=== PATIENT | female | born 1950 | race Caucasian/White ===

== ENCOUNTER 2017-09-09 13:36 | Observation (INO) ==
[2017-09-09 15:13] LABS: Bilirubin,Urine Negative (Negative); Clarity,Urine Cloudy (Clear); Color,Urine Yellow (Yellow); Glucose,Urine (UA) Normal (Normal); Ketones,Urine Negative (Negative)
[2017-09-09 15:14] LABS: Bacteria,Urine Moderate per hpf (None-Few); Blood,Urine Negative (Negative); Leukocyte Esterase,Urine Moderate (Negative); Nitrite,Urine Negative (Negative); PH,Urine 5.5 pH Units (5.0-8.0); Protein,Urine Negative (Neg-Trace); Specific Gravity,Urine 1.026 (1.010-1.025); Squamous Epithelial Cell,Urine Many per lpf (None-Few); Urobilinogen,Urine Normal (Normal); WBC,Urine TNTC per hpf (0-3)
[2017-09-09 15:15] LABS: Hyaline Casts,Urine Moderate per lpf (None-Few)
[2017-09-09 15:28] LABS: Amphetamine Screen,Urine Negative ng/mL (Cutoff=1000); Barbiturate Screen,Urine Negative ng/mL (Cutoff=200); Benzodiazepines Screen,Urine Negative ng/mL (Cutoff=200); Cannabinoid Screen,Urine Negative ng/mL (Cutoff = 50); Cocaine Screen,Urine Negative ng/mL (Cutoff= 300); Opiate Screen,Urine Negative ng/mL (Cutoff=300); Phencyclidine Screen,Urine Negative ng/mL (Cutoff=25)
[2017-09-09 15:36] LABS: Basophils # 0.2 K/mcL (0.0-0.2); Basophils % 1.7 %; Eosinophils # 0.2 K/mcL (0.0-0.6); Hematocrit 41.3 % (35.3-44.9); Hemoglobin 12.9 g/dL (11.5-15.4); Immature Granulocytes % 0.3 % (0-4); Lymphocytes % 23.4 %; Mean Corpuscular HGB Conc 31.2 g/dL (31.6-35.5); Mean Corpuscular Hemoglobin 29.3 pg (28.0-33.3); Mean Corpuscular Volume 93.9 fL (83.0-100.0); Mean Platelet Volume 9.2 fL (9.4-12.4); Neutrophils # 5.2 K/mcL (1.6-8.9); Platelet Count 315 K/mcL (140-400); Red Cell Distribution Width 13.9 % (11.5-14.5); Segmented Neutrophils % 60.6 %
--- NOTE | 2017-09-09 15:42 | Emergency Department Note ---
Disposition Clinical Impression: Near syncope, CKD (chronic kidney disease) stage 3, GFR 30-59 ml/min UTI (urinary tract infection) Qualifiers: Urinary tract infection type: site unspecified Hematuria presence: without hematuria Qualified Code(s): N39.0 - Urinary tract infection, site not specified Disposition: Still a Patient Condition: Good Referrals: Yves Epps DO [Primary Care Provider] - Forms: ED Satisfaction Letter General Adult HPI - General Chief complaint: ED Weakness Stated complaint: shaking,weak- 4 episodes over last 6 months Time Seen by Provider: 09/09/17 15:19 Source: patient Limitations: no limitations Nursing Notes Reviewed: Yes Vital Signs Reviewed: Yes - History of Present Illness HPI Narrative: Ms Damon is a 67 yo F who is here due to 2x episodes of numbness and tingling in arms today. This started 6-8 months ago and she has had 4 episodes during this time. These episodes have started sitting, and standing, and resolved after 2-3 minutes. She states she has SOB on exertion, and increased swelling in her ankles during the last few months. Patient denies recent "illness", fever, chills, diabetes, chest pain, orthopnea, PND. Pain Scale: 0 - Related Data Allergies Allergy/AdvReac Type Severity Reaction Status Date / Time No Known Allergies Allergy Verified 09/09/17 13:39 All systems ED: reviewed and negative except as stated. Review of Systems: As Per HPI Past Medical History - Past Medical History Attestation: Yes The following information was validated with the patient. Source: patient Medical history: Reports: hyperlipidemia, hypertension Psychiatric history: Reports: no psych history - Social History Smoking Status: Never smoker Smokeless Tobacco Status: No Alcohol use: Reports: none Drug use: Reports: none Physical Exam - General Limitations: no limitations General appearance: alert, in no apparent distress - Head Head exam: atraumatic, normocephalic, normal inspection - Eye Eye exam: Present: normal appearance, PERRL, EOMI - ENT ENT exam: normal exam, normal oropharynx, mucous membranes moist - Chest Chest inspection: Present: normal inspection, symmetric chest wall rise. Absent : tenderness, rash - Respiratory Respiratory exam: Present: normal lung sounds bilaterally. Absent: respiratory distress, wheezes, stridor, accessory muscle use, prolonged expiratory phase - Cardiovascular Cardiovascular exam: Present: regular rate, normal rhythm, normal heart sounds. Absent: bradycardia, tachycardia, irregular rhythm, systolic murmur, diastolic murmur, JVD - Abdominal Exam Abdominal exam: Present: soft, Non-Tender. Absent: tenderness, distention, guarding, rebound, rigidity - Extremities Exam Extremities exam: Present: normal inspection, full ROM. Absent: tenderness, pedal edema Course Course Narrative: Cardiac workup pending. - Reevaluation(s) Reevaluation #1: Heart score 4. U/A came back suspicious for UTI, and GFR is 57 suggestive of CKD3. Will start IVF Time: 16:33 Reevaluation #2: Patient is now stating she is having Left arm shakiness and weakness. Will order CT head. Spoke with Avery, admitting, and he requests to have MRI ordered if CT is negative due to holding pattern in hospital right now. Time: 16:46 Vital Signs Temperature 98.3 F 09/09/17 13:39 Pulse Rate 85 09/09/17 13:39 Respiratory Rate 20 09/09/17 13:39 Blood Pressure 150/84 09/09/17 13:39 O2 Sat by Pulse Oximetry 96 09/09/17 13:39 Temperature 98.3 F 09/09/17 13:39 Pulse Rate 68 09/09/17 17:50 Respiratory Rate 16 09/09/17 17:50 Blood Pressure 138/76 09/09/17 17:50 O2 Sat by Pulse Oximetry 99 09/09/17 17:50 Oxygen Delivery Oxygen Delivery Room Air Medical Decision Making - Medical Records Medical records reviewed: Yes I reviewed the patient's medical records. - Lab Data Result diagrams: 09/09/17 15:16 09/09/17 15:16 Lab Results 09/09/17 09/09/17 09/09/17 Range/Units 14:45 14:45 15:16 WBC 8.7 (4.3-11.1) K/mcL RBC 4.40 (3.82-4.97) M/mcL Hgb 12.9 (11.5-15.4) g/dL Hct 41.3 (35.3-44.9) % MCV 93.9 (83.0-100.0) fL MCH 29.3 (28.0-33.3) pg MCHC 31.2 L (31.6-35.5) g/dL RDW 13.9 (11.5-14.5) % Plt Count 315 (140-400) K/mcL MPV 9.2 L (9.4-12.4) fL Immature Gran % 0.3 (0-4) % Seg Neutrophils % 60.6 % Lymphocytes % 23.4 % Monocytes % 12.0 % Eosinophils % 2.0 % Basophils % 1.7 % Neutrophils # 5.2 (1.6-8.9) K/mcL Lymphocytes # 2.0 (0.6-4.6) K/mcL Monocytes # 1.0 (0.0-1.3) K/mcL Eosinophils # 0.2 (0.0-0.6) K/mcL Basophils # 0.2 (0.0-0.2) K/mcL Sodium (136-145) mEq/L Potassium (3.5-5.1) mEq/L Chloride (98-107) mEq/L Carbon Dioxide (23-29) mEq/L BUN (8-23) mg/dL Creatinine (0.60-1.20) mg/dL Est GFR ( Amer) (> 60) Est GFR (Non-Af Amer) (> 60) BUN/Creatinine Ratio (6-26) Glucose (70-105) mg/dL Calculated Osmolality (280-300) Calcium (8.6-10.3) mg/dL Total Bilirubin (0.3-1.0) mg/dL AST (13-39) Units/L ALT (7-52) Units/L Alkaline Phosphatase (34-104) Units/L Troponin I (< 0.04) ng/mL B-Natriuretic Peptide (Less than 100) pg/mL Serum Total Protein (6.4-8.9) g/dL Albumin (3.5-5.7) g/dL Globulin (2.4-3.5) g/dL Albumin/Globulin Ratio (1.1-2.2) Urine Color Yellow (Yellow) Urine Clarity Cloudy A (Clear) Urine pH 5.5 (5.0-8.0) pH Units Ur Specific [place] 1.026 H (1.010-1.025) Urine Protein Negative (Neg-Trace) mg/dL Urine Glucose (UA) Normal (Normal) mg/dL Urine Ketones Negative (Negative) mg/dL Urine Blood Negative (Negative) Urine Nitrite Negative (Negative) Urine Bilirubin Negative (Negative) Urine Urobilinogen Normal (Normal) mg/dL Ur Leukocyte Esterase Moderate H (Negative) Urine Microscopic RBC 5-15 H (0-3) per hpf Urine Microscopic WBC TNTC H (0-3) per hpf Ur Squamous Epith Cells Many H (None-Few) per lpf Urine Bacteria Moderate H (None-Few) per hpf Hyaline Casts Moderate H (None-Few) per lpf Ur Culture Indicated? NO. (NO) Urine Opiates Screen Negative (Lsrorv=243) ng/mL Ur Barbiturates Screen Negative (Nivvfk=151) ng/mL Ur Phencyclidine Scrn Negative (Cutoff=25) ng/mL Ur Amphetamines Screen Negative (Fkezum=4631) ng/mL U Benzodiazepines Scrn Negative (Jypucn=405) ng/mL Urine Cocaine Screen Negative (Cutoff= 300) ng/mL U Marijuana (THC) Screen Negative (Cutoff = 50) ng/mL Ethyl Alcohol (0-10) mg/dL 09/09/17 09/09/17 Range/Units 15:16 15:16 WBC (4.3-11.1) K/mcL RBC (3.82-4.97) M/mcL Hgb (11.5-15.4) g/dL Hct (35.3-44.9) % MCV (83.0-100.0) fL MCH (28.0-33.3) pg MCHC (31.6-35.5) g/dL RDW (11.5-14.5) % Plt Count (140-400) K/mcL MPV (9.4-12.4) fL Immature Gran % (0-4) % Seg Neutrophils % % Lymphocytes % % Monocytes % % Eosinophils % % Basophils % % Neutrophils # (1.6-8.9) K/mcL Lymphocytes # (0.6-4.6) K/mcL Monocytes # (0.0-1.3) K/mcL Eosinophils # (0.0-0.6) K/mcL Basophils # (0.0-0.2) K/mcL Sodium 140 (136-145) mEq/L Potassium 4.4 (3.5-5.1) mEq/L Chloride 104 (98-107) mEq/L Carbon Dioxide 30 H (23-29) mEq/L BUN 29 H (8-23) mg/dL Creatinine 0.97 (0.60-1.20) mg/dL Est GFR ( Amer) > 60 (> 60) Est GFR (Non-Af Amer) 57 L (> 60) BUN/Creatinine Ratio 30 H (6-26) Glucose 100 (70-105) mg/dL Calculated Osmolality 296 (280-300) Calcium 10.0 (8.6-10.3) mg/dL Total Bilirubin 0.3 (0.3-1.0) mg/dL AST 29 (13-39) Units/L ALT 39 (7-52) Units/L Alkaline Phosphatase 91 (34-104) Units/L Troponin I < 0.03 (< 0.04) ng/mL B-Natriuretic Peptide 44 (Less than 100) pg/mL Serum Total Protein 6.6 (6.4-8.9) g/dL Albumin 4.4 (3.5-5.7) g/dL Globulin 2.2 L (2.4-3.5) g/dL Albumin/Globulin Ratio 2.0 (1.1-2.2) Urine Color (Yellow) Urine Clarity (Clear) Urine pH (5.0-8.0) pH Units Ur Specific [place] (1.010-1.025) Urine Protein (Neg-Trace) mg/dL Urine Glucose (UA) (Normal) mg/dL Urine Ketones (Negative) mg/dL Urine Blood (Negative) Urine Nitrite (Negative) Urine Bilirubin (Negative) Urine Urobilinogen (Normal) mg/dL Ur Leukocyte Esterase (Negative) Urine Microscopic RBC (0-3) per hpf Urine Microscopic WBC (0-3) per hpf Ur Squamous Epith Cells (None-Few) per lpf Urine Bacteria (None-Few) per hpf Hyaline Casts (None-Few) per lpf Ur Culture Indicated? (NO) Urine Opiates Screen (Nnyaoy=838) ng/mL Ur Barbiturates Screen (Tasunp=725) ng/mL Ur Phencyclidine Scrn (Cutoff=25) ng/mL Ur Amphetamines Screen (Evzclw=8795) ng/mL U Benzodiazepines Scrn (Bwzqxv=728) ng/mL Urine Cocaine Screen (Cutoff= 300) ng/mL U Marijuana (THC) Screen (Cutoff = 50) ng/mL Ethyl Alcohol < 10 (0-10) mg/dL - EKG Data EKG #1 EKG attestation: Yes I reviewed and interpreted this EKG. EKG shows normal: sinus rhythm Rate: normal Rhythm: NSR [place]/QRS: normal When compared to previous EKG there are: no significant changes Interpretation: no acute changes, normal EKG, unchanged when compared to prior tracing (date) Attestation Statement - Attestation Attestation: I, Claude Mccabe, examined this patient and my medical decision-making was reviewed with the ASSOCIATE JUVENILE COURT JUDGE/PA/Advanced Practice Nurse/Resident Physician. I agree with the documented findings, disposition and treatment plan as described except to the extent set forth below. 67-year-old female presents emergency Department with concerns of intermittent lightheadedness, weakness, fatigue. Patient states this is occurred several times over the past few months however happened twice today. Patient states on the initial occurrence she had weakness of the bilateral upper extremities. On repeat she was sitting, restringing a guitar when she had acute onset of weakness, fatigue, lightheadedness and tingling in the left upper extremity. Patient denies a history of cardiac disease. She states the last stress test was many years ago. Initial troponin negative. EKG does not show evidence of STEMI or other evidence of ischemia. Patient comfortable with the plan for admission to the hospital for further care and evaluation of possible near syncopal events.
[2017-09-09 15:46] LABS: Ethanol < 10 mg/dL (0-10)
[2017-09-09 15:51] LABS: Alanine Aminotransferase 39 Units/L (7-52); Albumin 4.4 g/dL (3.5-5.7); Alkaline Phosphatase 91 Units/L (34-104); Aspartate Amino Transferase 29 Units/L (13-39); BUN/Creatinine Ratio 30 (6-26); Bilirubin,Total 0.3 mg/dL (0.3-1.0); Blood Urea Nitrogen 29 mg/dL (8-23); Carbon Dioxide 30 mEq/L (23-29); Chloride 104 mEq/L (98-107); Globulin 2.2 g/dL (2.4-3.5); Glucose 100 mg/dL (70-105); Osmolality,Calculated 296 (280-300); Potassium 4.4 mEq/L (3.5-5.1); Sodium 140 mEq/L (136-145); Total Protein 6.6 g/dL (6.4-8.9); Troponin I < 0.03 ng/mL (< 0.04); eGFR For African Americans > 60 (> 60); eGFR For Non-African Americans 57 (> 60)
[2017-09-09] MEDS ORDERED: cefTRIAXone 2,000 MG in Water for inj. (sterile) 20 ML 20 ML IVP ONE (16:31)
[2017-09-09] MEDS ORDERED: 0.9 % Sodium Chloride 1,000 ML IVC ONE (16:31)
[2017-09-09] MEDS ORDERED: Aspirin 81 MG TAB.CHEW PO ONE (16:31)
[2017-09-09] MEDS ORDERED: CefTRIAXone 1,000 MG VIAL IM ONE (16:34)
[2017-09-09] MEDS ORDERED: cefTRIAXone 1,000 MG in Water for inj. (sterile) 20 ML 10 ML IVPB ONE (16:44)
[2017-09-09] MEDS ORDERED: Naloxone 0.4 MG/ML INJ IVP PRN (21:09)
[2017-09-09] MEDS ORDERED: Acetaminophen 325 MG TABLET PO PRN (21:09)
--- NOTE | 2017-09-09 21:25 | Internal Med History&Physical ---
Date of Encounter: 09/09/17 Time of Encounter: 20:00 Assessment and Plan (1) Weakness Current visit: Yes Status: Acute Patient has a bilateral arm weakness, with shaking, resolved spontaneously after several minutes. Etiology is undetermined. MRI head has been done, unremarkable. - We will place patient on continuous cardiac monitoring - Check echo and duplex carotid bilaterally - We will check MRI C-spine, patient also complaining of right shoulder pain, will have MRI right shoulder as well - We will check TSH, vitamin B12, folate, and morning cortisol - Patient is taking statin, will check CK level, will hold satin at this point. (2) Hypertension Current visit: Yes Status: Acute Continue home medications Qualifiers: Hypertension type: essential hypertension Qualified Code(s): I10 - Essential (primary) hypertension (3) DVT prophylaxis Current visit: Yes Status: Acute Hypertension subcutaneously (4) UTI (urinary tract infection) Current visit: Yes Status: Acute Continue IV Rocephin. Follow up the urine culture Qualifiers: Urinary tract infection type: acute cystitis Hematuria presence: without hematuria Qualified Code(s): N30.00 - Acute cystitis without hematuria Internal Medicine - H&P: HPI Chief complaint: B/L arm weakness Admitted From: Home Plans for Post Hospital Care: Home History of present illness: Ms. Damon is a 67 year old female with a past medical history of hypertension presented to ER for bilateral arm weakness. Patient said she has about 4 times in the last 6 months bilateral arm weakness, cannot lift bilateral arm. Lasted several minutes and resolved by itself. This morning, she had another episode of similar problem, patient denies numbness/tingling/arm pain. Patient has another episode in the afternoon as well. Patient denies loss of consciousness , headache, slurred speech, double vision, gait change. Patient has shaking of arms and feels sick. Patient denies fever, no cough, no chest pain, no shortness of breath, no nausea or diarrhea. Patient has increased urinary frequency but denies dysuria or burning. Past Med Surg Social Fam HX - Past Medical History Medical history: hyperlipidemia, hypertension Psychiatric history: no psych history - Social History Smoking Status: Never smoker Smokeless Tobacco Status: No Alcohol use: none Drug use: none - Family History Mother History Unknown: Yes Internal Medicine - H&P: Meds Amlodipine Besylate [Amlodipine Besylate] 10 mg PO DAILY 09/09/17 [History] Atorvastatin Calcium [Lipitor] 20 mg PO HS 09/09/17 [History] Calcium Carbonate [Calcium] 600 mg PO DAILY 09/09/17 [History] Diclofenac Sodium (24 HR) [Voltaren XR] 100 mg PO DAILY 09/09/17 [History] Losartan Potassium [Cozaar] 100 mg PO DAILY 09/09/17 [History] Multivitamin-Min/Iron/FA/Vit K [Multi-Day Plus Minerals Tablet] 1 each PO DAILY 09/09/17 [History] [place]-3/Dha/Epa/Fish Oil [Fish Oil 1,000 mg Softgel] 1,000 mg PO DAILY 09/09/17 [History] Triamcinolone Acet 0.1% CRM [Kenalog] 1 appl TP DAILY PRN 09/09/17 [History] 3 Allergy/AdvReac Type Severity Reaction Status Date / Time No Known Allergies Allergy Verified 09/09/17 13:39 All Systems PM: A 10-system review of systems was performed and is negative for pertinent findings except as documented above in the HPI. - Constitutional Vitals: Temp Pulse Resp BP Pulse Ox 98.0 F 75 16 148/78 94 09/09/17 20:49 09/09/17 20:49 09/09/17 20:49 09/09/17 20:49 09/09/17 20:49 General appearance: Present: A&O X 3, no acute distress, answers questions appropriately - Head Head exam: Present: atraumatic, normocephalic - Eye Eye exam: Present: PERRL, conjuntiva pink, sclera anicteric Pupils: Present: PERRL - Neck Neck exam general surgery: Present: supple, trachea midline. Absent: lymphadenopathy - Respiratory Respiratory exam: Present: CTAB. Absent: accessory muscle use, rales, rhonchi, wheezes - Cardiovascular Cardiovascular exam: Present: RRR, +S1, +S2. Absent: diastolic murmur, gallop, rubs, systolic murmur - GI/Abdominal GI/Abdominal exam: Present: normal bowel sounds, soft, no peritoneal signs. Absent: distended, tenderness - Extremities Exam Extremities exam: Present: warm, radial pulses palpable and symmetrical. Absent : calf tenderness, cyanotic, pedal edema - Neurological Exam Neurological exam: Present: CN II-XII intact, oriented X3, no focal deficits. Absent: pronater drift, facial droop, speech deficit - Skin Skin exam: Present: dry, intact Internal Med - H&P Results - Labs CBC & Chem 7: 09/09/17 15:16 09/09/17 15:16
[2017-09-10 04:39] LABS: BUN/Creatinine Ratio 25 (6-26); Basophils # 0.2 K/mcL (0.0-0.2); Basophils % 2.3 %; Blood Urea Nitrogen 18 mg/dL (8-23); Carbon Dioxide 26 mEq/L (23-29); Chloride 110 mEq/L (98-107); Eosinophils # 0.2 K/mcL (0.0-0.6); Glucose 110 mg/dL (70-105); Hematocrit 38.1 % (35.3-44.9); Immature Granulocytes % 0.3 % (0-4); Lymphocytes # 2.2 K/mcL (0.6-4.6); Lymphocytes % 28.3 %; Magnesium 2.1 mg/dL (1.6-2.6); Mean Corpuscular HGB Conc 31.5 g/dL (31.6-35.5); Mean Corpuscular Hemoglobin 29.4 pg (28.0-33.3); Mean Corpuscular Volume 93.4 fL (83.0-100.0); Mean Platelet Volume 9.4 fL (9.4-12.4); Monocytes % 12.7 %; Neutrophils # 4.2 K/mcL (1.6-8.9); Osmolality,Calculated 299 (280-300); Platelet Count 281 K/mcL (140-400); Red Blood Count 4.08 M/mcL (3.82-4.97); Segmented Neutrophils % 53.4 %; Sodium 143 mEq/L (136-145); eGFR For African Americans > 60 (> 60); eGFR For Non-African Americans > 60 (> 60)
[2017-09-10 04:43] LABS: Thyroid Stimulating Hormone 4.662 mcIU/mL (0.340-5.600)
[2017-09-10 04:54] LABS: Folate > 22.3 ng/mL (3.0-16.0)
[2017-09-10 04:55] LABS: Vitamin B12 716 pg/mL (250-1100)
[2017-09-10] MEDS: *HR* Heparin 5,000 UNIT/ML VIAL SQ SCH ×2 (05:46→17:49)
[2017-09-10] MEDS ORDERED: (Omega-3/Dha/Epa/Fish Oil [Fish Oil 1,000 Mg Softgel] PO SCH (09:00)
[2017-09-10] MEDS ORDERED: Multivit/Ca/Min/Fe/FA 1 TAB TABLET PO SCH (09:00)
[2017-09-10] MEDS ORDERED: amLODIPine 5 MG TABLET PO SCH (09:00)
[2017-09-10] MEDS ORDERED: cefTRIAXone 1,000 MG in 0.9 % Sodium Chloride Mini Bag 100 ML IVPB SCH ×2 (09:00→14:00)
--- NOTE | 2017-09-10 10:41 | Neurology - Consult Note ---
<Avery Daniel - Last Filed: 09/10/17 11:30> Date of Encounter: 09/10/17 Time of Encounter: 10:00 Assessment and Plan (1) Upper extremity weakness Current Visit: Yes Status: Acute Plan: - 60mg IV solumderol once - Gabapentin 300mg HS - Medrol dose pack at discharge History of Present Illness HPI: Ms. Damon is a 67 year old female hx of RA, chronic back pain, HLD, HTN was admitted through the emergency department with bilateral upper extremity weakness. She states that she had an episode of tingling and numbness with upper extremity weakness roughly 2 months ago that resolved on its own. The symptoms affected both arms simultaneously and resolved within an hour. She has had several other events with similar symptoms only involving the upper extremities since then while performing daily activities or wall driving. Yesterday she had symptoms of bilateral extremity weakness numbness tingling and difficulty with left wrist flexion or grasping associated with bilateral upper extremity tremors left greater than the right. She does have occasional neck discomfort but denies any other concerning neurologic symptoms including headaches, blurry vision, double vision, difficulty swallowing, chest pain, palpitations, neck pain, near syncope, abdominal pain, nausea vomiting diarrhea constipation or uncontrolled bladder or bowel loss. She has never had associated weakness numbness or tingling in her lower extremities and states that the symptoms have only affected her upper extremities and she is concerned it is more of a nerve problem may be associated with her neck compared to a stroke. She denies any history of stroke, seizures, neurologic injury, cardiac disease or clotting disorders. Past Med Surg Social Fam HX - Past Medical History Medical history: hyperlipidemia, hypertension Psychiatric history: no psych history - Social History Smoking Status: Never smoker Smokeless Tobacco Status: No Alcohol use: none Drug use: none - Family History Mother History Unknown: Yes Medications and Allergies Amlodipine Besylate [Amlodipine Besylate] 10 mg PO DAILY 09/09/17 [History] Atorvastatin Calcium [Lipitor] 20 mg PO HS 09/09/17 [History] Calcium Carbonate [Calcium] 600 mg PO DAILY 09/09/17 [History] Diclofenac Sodium (24 HR) [Voltaren XR] 100 mg PO DAILY 09/09/17 [History] Losartan Potassium [Cozaar] 100 mg PO DAILY 09/09/17 [History] Multivitamin-Min/Iron/FA/Vit K [Multi-Day Plus Minerals Tablet] 1 each PO DAILY 09/09/17 [History] [place]-3/Dha/Epa/Fish Oil [Fish Oil 1,000 mg Softgel] 1,000 mg PO DAILY 09/09/17 [History] Triamcinolone Acet 0.1% CRM [Kenalog] 1 appl TP DAILY PRN 09/09/17 [History] 3 Allergy/AdvReac Type Severity Reaction Status Date / Time No Known Allergies Allergy Verified 09/09/17 13:39 All Systems: The remainder of the systems were reviewed and are negative - Constitutional Constitutional ROS IM: weakness, no anorexia, no chills, no fever(s), no headache(s) - Nose, Mouth, Throat Nose, mouth and throat: no abnormal hearing, no change in voice, no headache(s) , no sore throat, no throat swelling - Cardiovascular Cardiovascular ROS IM: no irregular heart rhythm, no rapid heart rate, no slow heart rate, no syncope - Respiratory Respiratory IM: no dyspnea, no dyspnea on exertion, no chest congestion, no pain with cough - Gastrointestinal Gastrointestinal: no bloating, no constipation, no diarrhea, no nausea, no vomiting - Genitourinary Genitourinary ROS: no urinary incontinence, no urinary urgency - Musculoskeletal Musculoskeletal ROS IM: muscle cramps, muscle weakness, neck pain, numbness, tingling Musculoskeletal: right: shoulder pain - Neurological Neurological ROS: focal weakness (Upper extremities bilaterally), numbness ( Upper extremities only), tingling, tremor(s) (Upper extremities only), weakness (Upper extremities only), no abnormal hearing, no dizziness, no sensory deficit , no syncope Physical Examination - Vital Signs Vital Signs: Initial Vital Signs Temp Pulse Resp BP Pulse Ox 98.3 F 85 20 150/84 96 09/09/17 13:39 09/09/17 13:39 09/09/17 13:39 09/09/17 13:39 09/09/17 13:39 - Constitutional General appearance: comfortable - Neurologic Sensorimotor examination: intact Detailed motor examination: grossly full strength in all extremities, full strength in all major muscle groups Motor examination - right side: 5/5: deltoids, biceps, triceps, wrist flexion, wrist extension, certified nurse midwife, hip flexors, tibialis Anterior, quadriceps, toe extension (EHL), plantarflexion Motor examination - left side: 5/5: deltoids, biceps, triceps, wrist flexion, wrist extension, hip flexors, certified nurse midwife, quadriceps, tibialis Anterior, toe extension (EHL), plantarflexion Detailed sensory examination: intact Reflexes: Biceps: 3+, Triceps: 3+, Brachioradialis: 3+, Patella: 2+, Achilles: 2 + Mental Status Examination: awake, alert, oriented to person, oriented to place, oriented to time, follows commands appropriately, answers questions appropriately, no agnosia, no aphasia, no aproxia, lucid Cranial nerve examination: PERRL, EOMI, visual ochoa intact, sensory to face intact, mastication intact, no facial asymmetry is present, no dysarthria, hearing is intact symmetrically, soft palate elevates bilaterally upon phonation , gag reflex intact, flexes SCM and trapezius muscles symmetrically with full power, tongue protrudes midline, no atrophy or facial fasiculations present Cerebellar examination: no dysmetria, performs finger to nose and heel to martell symmetrically without ataxia Results - Laboratory Findings CBC and BMP: 09/10/17 03:47 09/10/17 03:47 Abnormal lab findings: Abnormal lab results MCHC 31.5 g/dL (31.6-35.5) L 09/10/17 03:47 Chloride 110 mEq/L (98-107) H 09/10/17 03:47 Glucose 110 mg/dL (70-105) H 09/10/17 03:47 Globulin 2.2 g/dL (2.4-3.5) L 09/09/17 15:16 Folate > 22.3 ng/mL (3.0-16.0) H 09/10/17 03:47 Urine Clarity Cloudy (Clear) A 09/09/17 14:45 Ur Specific [place] 1.026 (1.010-1.025) H 09/09/17 14:45 Ur Leukocyte Esterase Moderate (Negative) H 09/09/17 14:45 Urine Microscopic RBC 5-15 per hpf (0-3) H 09/09/17 14:45 Urine Microscopic WBC TNTC per hpf (0-3) H 09/09/17 14:45 Ur Squamous Epith Cells Many per lpf (None-Few) H 09/09/17 14:45 Urine Bacteria Moderate per hpf (None-Few) H 09/09/17 14:45 Hyaline Casts Moderate per lpf (None-Few) H 09/09/17 14:45 Consult Discharge Plan - Plan Referrals: Yves Epps DO [Primary Care Provider] - Jason Pillai Jr, MD [Partnered Physician] - 09/19/17 1:30 pm <Char Starr I - Last Filed: 09/10/17 15:39> Date of Encounter: 09/10/17 Assessment and Plan (1) DJD (degenerative joint disease) of cervical spine Current Visit: Yes Status: Acute MRI of the cervical spine was reviewed show significant degenerative changes throughout the whole spine with stenosis at multiple levels. Patient's symptoms are likely related to it. No evidence of any acute infarct on imaging studies of the head as well as clinically. Patient may benefit from pulse of steroids as well as gabapentin for symptomatic relief. She may benefit from surgical consultation as an outpatient. Char Starr MD Qualifiers: Spinal osteoarthritis complication: other spinal osteoarthritis Qualified Code(s): M47.892 - Other spondylosis, cervical region (2) Upper extremity weakness Current Visit: Yes Status: Acute MRI of the cervical spine was reviewed show significant degenerative changes throughout the whole spine with stenosis at multiple levels. Patient's symptoms are likely related to it. No evidence of any acute infarct on imaging studies of the head as well as clinically. Patient may benefit from pulse of steroids as well as gabapentin for symptomatic relief. She may benefit from surgical consultation as an outpatient. Char Starr MD History of Present Illness HPI: Ms. Damon is a 67 year old female All Systems: The remainder of the systems were reviewed and are negative Physical Examination - Vital Signs Vital Signs: Initial Vital Signs Temp Pulse Resp BP Pulse Ox 98.3 F 85 20 150/84 96 09/09/17 13:39 09/09/17 13:39 09/09/17 13:39 09/09/17 13:39 09/09/17 13:39 Results - Laboratory Findings CBC and BMP: 09/10/17 03:47 09/10/17 03:47 Abnormal lab findings: Abnormal lab results MCHC 31.5 g/dL (31.6-35.5) L 09/10/17 03:47 Chloride 110 mEq/L (98-107) H 09/10/17 03:47 Glucose 110 mg/dL (70-105) H 09/10/17 03:47 Globulin 2.2 g/dL (2.4-3.5) L 09/09/17 15:16 Folate > 22.3 ng/mL (3.0-16.0) H 09/10/17 03:47 Urine Microscopic RBC 5-15 per hpf (0-3) H 09/09/17 14:45 Urine Microscopic WBC TNTC per hpf (0-3) H 09/09/17 14:45 Ur Squamous Epith Cells Many per lpf (None-Few) H 09/09/17 14:45 Urine Bacteria Moderate per hpf (None-Few) H 09/09/17 14:45 Hyaline Casts Moderate per lpf (None-Few) H 09/09/17 14:45
[2017-09-10] MEDS ORDERED: methylPREDNISolone 125 MG/2 ML VIAL IVP ONE (11:30)
[2017-09-10 13:30] LABS: Bilirubin,Urine Negative (Negative); Blood,Urine Negative (Negative); Clarity,Urine Clear (Clear); Color,Urine Yellow (Yellow); Glucose,Urine (UA) Normal (Normal); Ketones,Urine Negative (Negative); Leukocyte Esterase,Urine Negative (Negative); Nitrite,Urine Negative (Negative); PH,Urine 7.5 pH Units (5.0-8.0); Protein,Urine Negative (Neg-Trace); Specific Gravity,Urine 1.012 (1.010-1.025); Urobilinogen,Urine Normal (Normal)
[2017-09-10 16:41] VITALS: BP 133/80
--- NOTE | 2017-09-10 17:41 | Electrocardiograph Report ---
[address] [address] Test Date: 2017-09-09 Pat Name: Celia Damon Department: 104 Room: 3B16 Gender: F [employer] Mortgage Broker: : [id number] Requested By: Matias Ward Order Number: [id number] Reading MD: Re Marie Measurements Intervals [place] Rate: 70 P: 39 [place]: 187 QRS: 3 QRSD: 96 T: 29 QT: 389 QTc: 409 Interpretive Statements SINUS RHYTHM Electronically Signed On 09-10-2017 17:39:52 EST by Re Marie
--- NOTE | 2017-09-10 18:01 | Discharge Summary ---
- NOTES TO OUTPATIENT PROVIDER Notes to Outpatient Provider: Follow-up with Dr. Pillai from spinal with a group next week as scheduled. Follow-up with primary care physician within the week Date of Encounter: 09/10/17 Time of Encounter: 17:59 - Discharge Diagnosis (1) Cervical arthritis Priority: Primary Status: Chronic Comments: This is likely contributing to her upper arm weakness Cervical MRI reviewed with multilevel disc osteophyte complex results in multilevel central canal stenosis and neural foraminal stenosis as detailed level by level in the report. She will follow-up with Dr. Pillai in the office as scheduled next week for a evaluation and treatment plan Neurology saw her reviewed all the studies including CT and MRI of the brain and have cleared her from neurology perspective and agree with the above (2) Hypertension Priority: Primary Status: Chronic Comments: Blood pressure is stable, continue home medications Qualifiers: Hypertension type: essential hypertension Qualified Code(s): I10 - Essential (primary) hypertension (3) Upper extremity weakness Priority: Primary Status: Acute Comments: Neurology service cleared from a TIA CVA aspect. After reviewing all the studies examine the patient they believe it is secondary to her cervical osteophytes and changes on the cervical MRI She has had chronic extremity weakness of her hands on and off symptoms of tingling for some time Hospital course: Ms. Damon is a 67 year old female with a history of RA, chronic back pain, hyperlipidemia, hypertension who was admitted with bilateral upper extremity weakness from the emergency department. She stated she had an episode of tingling numbness with upper extremity weakness roughly 2 months ago that resolved on her own. The symptoms affected both arms simultaneously and resolve within an hour she had several other similar events involving upper extremities since that time when performing daily activities or with driving. She also reported some weakness in her hands with opening jars etc. Yesterday she had the same symptoms but had difficulty with left wrist flexion and grasping with upper extremity tremors left greater than the right. This lasted longer than usual. She was afraid she was having a stroke since she came to the ER for evaluation. She states she has occasional neck discomfort but no other concerning symptoms. She denied any headache, blurry vision, double vision, swallowing difficulties, chest pain, palpitations, fever, chills, neck pain, syncope or any other associated symptoms. She has never lost control of her bowel or bladder. She never has any weakness or numbness in her lower extremities. Echocardiogram, bilateral carotid Dopplers, brain MRI, and head CT were all reviewed. Neurology evaluated the patient and felt her symptoms were related to her cervical spine. The cervical spine MRI and shoulder MRI reviewed. This was discussed with Dr. Pillai and he will see her in the office next week for evaluation and treatment plan. The patient is in agreement with this and has no questions at this time Discharge discussed with: patient, family, nurse, social work - Time Spent with Patient Total time spent providing and/or coordinating discharge services: Less than 30 minutes - Discharge Medications Prescriptions: Gabapentin 300 mg PO HS #30 mls methylPREDNISolone [Medrol] 4 mg PO DAILY #1 tablet Home Medications: Amlodipine Besylate 10 mg PO DAILY 09/09/17 [History] Atorvastatin Calcium [Lipitor] 20 mg PO HS 09/09/17 [History] Calcium Carbonate [Calcium] 600 mg PO DAILY 09/09/17 [History] Diclofenac Sodium (24 HR) [Voltaren XR] 100 mg PO DAILY 09/09/17 [History] Losartan Potassium [Cozaar] 100 mg PO DAILY 09/09/17 [History] Multivitamin-Min/Iron/FA/Vit K [Multi-Day Plus Minerals Tablet] 1 each PO DAILY 09/09/17 [History] [place]-3/Dha/Epa/Fish Oil [Fish Oil 1,000 mg Softgel] 1,000 mg PO DAILY 09/09/17 [History] Triamcinolone Acet 0.1% CRM [Kenalog] 1 appl TP DAILY PRN 09/09/17 [History] Gabapentin 300 mg PO HS #30 mls 09/10/17 [Rx] methylPREDNISolone [Medrol] 4 mg PO DAILY #1 tablet 09/10/17 [Rx] Allergies/Adverse Reactions: 3 Allergy/AdvReac Type Severity Reaction Status Date / Time No Known Allergies Allergy Verified 09/09/17 13:39 Date of admission: 09/09/17 18:54 Primary care physician: Yves Alvarez Colopy Consults: 09/10/17 11:42 Consult to Neurology [CONS] Routine Consulting Provider: Neurology [facility] Reason for Consult: upper arm weakness, r/o TIA Time Notified: 11:42 Call Completed: Yes Discharging clinician: Nita Barnes Anticipated date of discharge: 09/10/17 - Constitutional Vitals: Temp Pulse Resp BP Pulse Ox 98.9 F 79 18 133/80 95 09/10/17 16:40 09/10/17 16:40 09/10/17 16:40 09/10/17 16:40 09/10/17 16:40 General appearance: Present: cooperative, A&O X 3, no acute distress, answers questions appropriately - Head Head exam: Present: atraumatic, normocephalic - Eye Eye exam: Present: PERRL, conjuntiva pink, sclera anicteric Pupils: Present: PERRL - Neck Neck exam general surgery: Present: supple, trachea midline. Absent: lymphadenopathy - Respiratory Respiratory exam: Present: CTAB. Absent: accessory muscle use, rales, rhonchi, wheezes - Cardiovascular Cardiovascular exam: Present: RRR, +S1, +S2. Absent: diastolic murmur, gallop, rubs, systolic murmur - GI/Abdominal GI/Abdominal exam: Present: normal bowel sounds, soft, no peritoneal signs. Absent: distended, tenderness - Extremities Exam Extremities exam: Present: warm, radial pulses palpable and symmetrical. Absent : calf tenderness, cyanotic, pedal edema - Neurological Exam Neurological exam: Present: alert, CN II-XII intact, oriented X3, no focal deficits, strengths equal and symetr throughout. Absent: pronater drift, facial droop, speech deficit - Skin Skin exam: Present: dry, intact, normal color, warm - Patient Status Disposition: Home, Self-Care Condition: Good Functional capacity at discharge: independent ambulation Overall status at discharge: patient is back to baseline - Discharge Instructions Follow Up With: Yves Epps DO [Primary Care Provider] - Jason Pillai Jr, MD [Partnered Physician] - 09/19/17 1:30 pm - Diet and Activity Activity: increase activity as tolerated Diet: advance to your usual diet
[2017-09-10] MEDS ORDERED: Gabapentin 300 MG CAPSULE PO SCH (21:00)
== END 2017-09-10 19:12 | disposition home or self-care (01) ==
LOC: EMEROO 13:36 → 3BNU 13:36
PROVIDERS: ADMIT Nurse Practitioner Family; ATTEND Registered Nurse

== ENCOUNTER 2017-10-29 08:56 | Inpatient (IN) ==
[~2017-10-29 08:56] MED LIST: Bacitracin 50,000 UNIT, Polymyxin B Sulfate 500,000 UNIT, Sodium Chloride IRRigation 1,... IR ONE
[2017-10-29] MEDS ORDERED: CeFAZolin Syr 2,000MG/20 ML 2,000 MG/20 ML SYRINGE IVPB ONE (09:16)
[2017-10-29] MEDS ORDERED: Plasma-Lyte A (PH 7.4) 1,000 ML IVC SCH (09:30)
--- NOTE | 2017-10-29 09:47 | Anesthesia Evaluation PreOp ---
Date of Encounter: 10/29/17 Time of Encounter: 10:01 - Past History Planned Operation: ACDF C4-C7 Cardiac History: HTN, Hyperlipidemia Pulmonary History: Other (Recent bronchpneumonia, treated with abx) RELIGIOUS EDUCATION COORDINATOR History: Denies Any Significant HX Other Medical History: Other (Right shoulder RCT) Anesthesia History: No Prior Anesthetic Complications, Past Anesthesia (GB, L hand) Alcohol Use: none Drug use: none Medications and Allergies Amlodipine Besylate 10 mg PO DAILY 09/09/17 [History] Atorvastatin Calcium [Lipitor] 20 mg PO HS 09/09/17 [History] Calcium Carbonate [Calcium] 600 mg PO DAILY 09/09/17 [History] Diclofenac Sodium (24 HR) [Voltaren XR] 100 mg PO DAILY 09/09/17 [History] Losartan Potassium [Cozaar] 100 mg PO DAILY 09/09/17 [History] Multivitamin-Min/Iron/FA/Vit K [Multi-Day Plus Minerals Tablet] 1 each PO DAILY 09/09/17 [History] [place]-3/Dha/Epa/Fish Oil [Fish Oil 1,000 mg Softgel] 1,000 mg PO DAILY 09/09/17 [History] Triamcinolone Acet 0.1% CRM [Kenalog] 1 appl TP DAILY PRN 09/09/17 [History] Gabapentin 300 mg PO HS #30 mls 09/10/17 [Rx] methylPREDNISolone [Medrol] 4 mg PO DAILY #1 tablet 09/10/17 [Rx] 3 Allergy/AdvReac Type Severity Reaction Status Date / Time No Known Allergies Allergy Verified 10/15/17 13:18 - Meds/Allergy Pre-op Review Medications Reviewed: Yes Allergies Reviewed: Yes Beta Blockers on Current Med List: No Anesthesia Results - Labs Laboratory Tests 09/09/17 09/10/17 10/15/17 15:16 03:47 13:40 Hgb 13.1 Hct 42.2 Plt Count 343 PT INR APTT Sodium Potassium BUN Creatinine Glucose 110 H Serum Total Protein 6.6 Albumin 4.4 10/15/17 10/15/17 13:40 13:40 Hgb Hct Plt Count PT 11.2 INR 1.0 APTT 28.2 Sodium 141 Potassium 4.3 BUN 22 Creatinine 0.93 Glucose Serum Total Protein Albumin - Imaging EKG: report reviewed (NSR) Anesthesia Exam O2 Sat Height 1.68 m Weight 91.172 kg BMI 32 Vital Signs Temp Pulse Resp BP Pulse Ox 97.9 F 78 18 137/73 96 10/29/17 09:28 10/29/17 09:28 10/29/17 09:28 10/29/17 09:28 10/29/17 09:28 - HEENT Mallampati: I (Recessed lower mandible, adequate neck extension without symptoms ) Teeth: Normal Oral Opening: Greater than 3 - RELIGIOUS EDUCATION COORDINATOR LOC: Oriented RELIGIOUS EDUCATION COORDINATOR Motor: Normal RUE, Normal LUE, Normal RLE, Normal LLE - Cardiac Rhythm: Regular - Pulmonary Breath Sounds: bilateral Clear Anesthesia Assess/Plan ASA Score: 3 Modified [place] Scale for Level of Consciousness: Cooperative, oriented, and tranquil Anesthetic Plan: General Monitoring Plan: Standard Monitors, A-Line (Possible) Recovery Plan: PACU Anes Supervising Prov Stmt: Patient informed and consented. Risks, benefits, and alternatives discussed. Patient wishes to proceed.
[2017-10-29] MEDS ORDERED: *HR* Methadone 10 MG TABLET PO ONE (10:05)
[2017-10-29] MEDS ORDERED: Ipratropium/Albuterol Neb 3 ML IH ONE (10:07)
[2017-10-29] MEDS ORDERED: Albuterol 2.5 MG/3 ML NEBULIZER ONE (10:11)
[2017-10-29] MEDS ORDERED: *HR* Propofol 200 MG/20 ML VIAL IVP ONE (10:38)
[2017-10-29] MEDS ORDERED: Lidocaine -MPF 2% 2 ML VIAL ONE (10:38)
[2017-10-29] MEDS ORDERED: *HR* FentaNYL (PF) 100 MCG/2 ML VIAL ONE (10:38)
[2017-10-29] MEDS ORDERED: *HR* Rocuronium Bromide 50 MG/5 ML VIAL ONE (10:38)
[2017-10-29] MEDS ORDERED: Ketorolac 30 MG/ML VIAL ONE (10:38)
[2017-10-29] MEDS ORDERED: Propofol 500 MG/50 ML INFUS..BTL ONE ×3 (10:38→14:00)
[2017-10-29] MEDS ORDERED: *HR* Remifentanil 2 MG VIAL IVP ONE (10:38)
[2017-10-29] MEDS ORDERED: Dexamethasone 4 MG/ML VIAL ONE (10:38)
[2017-10-29] MEDS ORDERED: *HR* Midazolam HCl 2 MG/2 ML VIAL ONE (10:38)
[2017-10-29] MEDS ORDERED: Ondansetron 4 MG/2 ML VIAL ONE (10:38)
--- NOTE | 2017-10-29 11:07 | History & Physical Report ---
Date of Encounter: 10/29/17 Time of Encounter: 11:06 24 Hour HP Update - Instructions Instructions: If the History and Physical is less than 30 days old and was completed prior to A.M. admission and or procedure and has NOT been updated on calendar day of procedure please complete this update prior to performing procedure. - Update Patient reports changes in Medical Condition: No Changes in examination, assessment, or condition: No Changes in Medication: No Preop tests/diagnostics Reviewed: Yes Pre-Op MRSA Screen: Negative Surgery Remains Indicated: Yes Consent for Planned Operative Procedure(s) Verified: Yes - Pre-Operative Checklist Preoperative Checklist Indicated: No Prophylactic Antibiotic Ordered: Yes Home Medications Include Beta Rohit: No Beta Rohit Taken Today (Day of Surgery): No Beta Rohit Taken Yesterday (Day Prior to Surgery): No Is VTE Prophylaxis Indicated?: Yes
[2017-10-29] MEDS ORDERED: SUGAMMADEX SODIUM 500 MG/5 ML VIAL IV ONE (12:02)
[2017-10-29] MEDS ORDERED: EPHEDrine 50 MG/ML VIAL ONE (12:16)
[2017-10-29] MEDS ORDERED: *HR* OxyCODONE Immed Rel 5 MG TABLET PO PRN ×2 (14:18→15:39)
[2017-10-29] MEDS ORDERED: Ondansetron 4 MG/2 ML VIAL IVP PRN (14:18)
[2017-10-29] MEDS ORDERED: *HR* Morphine 10 MG/ML VIAL ONE (14:32)
--- NOTE | 2017-10-29 14:45 | Orthopedic Operative Note ---
Date of procedure: 10/29/17 Pre-op diagnosis: Cervical stenosis, cervical radiculopathy Post-op diagnosis: same Operation/Findings: Anterior cervical decompression and fusion C4-C7: The patient was brought to the operating room and placed supine on the operating room table. Successful general endotracheal anesthesia intubation was performed. Neurophysiologic monitoring personnel placed leads on the upper and lower extremities as well as the cranium for EMG monitoring purposes. Appropriate baseline potentials were noted by the neurophysiologic monitoring staff. Rock catheter was placed prior to positioning. Compression boots and stockings were placed for deep vein thrombosis prophylaxis. Padding was also placed all bony prominences including the ulnar nerve near the medial epicondyles of the elbows were appropriately padded. Mild traction was placed on the bilateral shoulders and taped into place. Preoperative antibiotics were administered. The area from the mandible bilaterally to the upper thoraces was prepped and draped in the usual sterile fashion. An oblique incision was made at the level of the cricoid cartilage which is approximately 3 cm in length and extended from the midline of the cervical spine laterally towards the sternocleidomastoid muscle on the left. It was 1 cm medial and parallel to the sternocleidomastoid muscle on the left. We then performed standard medial approach to the carotid sheath. Sponges were used to tease the fascial medial to the sternocleidomastoid muscle while carefully controlling and palpating the carotid artery. Using careful dissection we were able to get to the level of the anterior vertebral bodies and longus coli muscles. The spinal needle was placed at the appropriate C6-7 level, and intraoperative radiograph was obtained which was a cervical spine lateral radiograph. The needle and radiograph confirmed we were at the correct operative level. We further exposed this level by using Bovie cautery under the medial edge of the longus colli muscles to allow them to be retracted approximately 2 mm laterally on each side. An 11 blade was used to perform anterior discectomy at the appropriate C6-7 level after an initial annulotomy of the anterior longitudinal ligament and annulus was performed. Further disc material was removed with pituitary Rongeurs. Subsequently, Synthes pins were placed at the C6 and C7 vertebral bodies respectively to provide distraction. We then used a Trimline cervical retractor which was placed in both medial and lateral as well as inferior superior direction to allow full visualization of the appropriate C6-7 disc and C6 and C7 vertebral bodies. The Leica microscope was brought to the field and the remainder of the procedure was performed under the guidance of this microscope. Using pituitary rongeurs and small curettes, various micro- instruments, a full discectomy was performed at the appropriate C6-C7 level. The posterior longitudinal ligament was encountered and appeared partially calcified. A portion of this ligament was removed. After complete and thorough discectomy and removal of spondylitic material was performed the endplates of the C6 and C7 vertebral bodies were prepared with a bur until allow bleeding of cancellous bone. A 8mm trial graft was evaluated and appeared to fit quite well within the excised C6-7 disc space. A cortico- cancellous allograft of 8 mm was utilized, carefully tapped into place within the excised disc space with the aid of a bone tamp. It was seated approximately 2 mm from the anterior edge of the cortex of the adjacent vertebral bodies. We then turned our attention to the C5-6 level where a similar series of procedures was performed including discectomy, removal of spondylitic material, end plate preparation, and trial grafting. An 8mm trial fit well within the C5-6 disc space. A 8 mm allograft was then placed at C5-6. We then turned our attention to the C4-5 level where a similar series of procedures was performed including discectomy, removal of spondylitic material, end plate preparation, and trial grafting was performed. A 7 mm trial fit well within the C4-5 disc space. A 7 mm cortical cancellous allograft was placed at C4-5. A cervical plate was then placed on the anterior aspect of the C4, C5, C6, and C7 vertebral bodies. The plate was placed in the midline position after drilling eight 13 mm self tapping screws and inserting them. They were locked in place using standard Venture plate maneuvers. At this point a lateral radiograph of the cervical spine was obtained and showed satisfactory position of the graft and plate. The wound was copiously irrigated and bleeders encountered were cauterized using Bovie cautery. Platysma was closed with interrupted 2-0 Vicryl sutures. Running 3-0 Monocryl suture was used for skin closure. Sterile dressing was placed over the neck wound. A cervical collar was placed. The patient was transferred to a hospital bed and extubated. The patient was noted to be fully motor and sensory intact in the recovery room at the end of the procedure. The medications. All sponge instrument and needle counts were correct at the end of the procedure. Anesthesia: GETA Surgeon: Jason Pillai Jr Was there an pharmacy affairs assistant present: No Estimated blood loss (cc): 100 Specimen: none Condition: stable Disposition: PACU
[2017-10-29] MEDS ORDERED: Acetaminophen 325 MG TABLET PO PRN (15:39)
[2017-10-29] MEDS ORDERED: Ringers Solution, Lactated 1,000 ML IVC SCH (15:39)
[2017-10-29] MEDS ORDERED: *HR* HYDROcodone/Acet 5/325 mg TABLET PO PRN (15:39)
[2017-10-29] MEDS ORDERED: Naloxone 0.4 MG/ML INJ IVP PRN (15:39)
[2017-10-29] MEDS ORDERED: CeFAZolin Pre 2,000 MG/100 ML 2,000 MG/100 ML BAG IVPB SCH (16:00)
--- NOTE | 2017-10-29 16:15 | Anesthesia Evaluation Post Op ---
Date of Encounter: 10/29/17 Time of Encounter: 13:27 Notes: Patient's vital signs have been reviewed. Patient is stable postoperatively and has adequately recovered from anesthesia. Patient is determined to have stable airway patency and respiratory function including respiratory rate and oxygen saturation. Patient has a stable heart rate, blood pressure and adequate hydration. Patients mental status is acceptable. Patients temperature is appropriate. Pain and nausea are adequately controlled. - Discharge PostOp Status: Transfer Patient to floor
[2017-10-29] MEDS: Ondansetron 4 MG/2 ML VIAL IVP PRN (21:30)
[2017-10-29] MEDS: ceFAZolin 2,000 MG in 0.9 % Sodium Chloride 100 ML IVPB SCH (22:06)
[2017-10-30 01:36] LABS: Basophils % 0.2 %; Hematocrit 35.5 % (35.3-44.9); Hemoglobin 11.4 g/dL (11.5-15.4); Immature Granulocytes % 0.6 % (0-4); Lymphocytes # 0.7 K/mcL (0.6-4.6); Lymphocytes % 5.7 %; Mean Corpuscular HGB Conc 32.1 g/dL (31.6-35.5); Mean Corpuscular Volume 93.4 fL (83.0-100.0); Mean Platelet Volume 9.3 fL (9.4-12.4); Monocytes # 0.9 K/mcL (0.0-1.3); Monocytes % 7.2 %; Neutrophils # 11.2 K/mcL (1.6-8.9); Platelet Count 249 K/mcL (140-400); Red Cell Distribution Width 13.5 % (11.5-14.5); Segmented Neutrophils % 86.3 %
[2017-10-30 01:47] LABS: BUN/Creatinine Ratio 17 (6-26); Blood Urea Nitrogen 12 mg/dL (8-23); Calcium 8.7 mg/dL (8.6-10.3); Carbon Dioxide 28 mEq/L (23-29); Chloride 107 mEq/L (98-107); Glucose 140 mg/dL (70-105); Osmolality,Calculated 292 (280-300); Potassium 4.6 mEq/L (3.5-5.1); Sodium 140 mEq/L (136-145); eGFR For African Americans > 60 (> 60); eGFR For Non-African Americans > 60 (> 60)
[2017-10-30] MEDS: ceFAZolin 2,000 MG in 0.9 % Sodium Chloride 100 ML IVPB SCH (03:28)
[2017-10-30] MEDS: Ondansetron 4 MG/2 ML VIAL IVP PRN (03:42)
--- NOTE | 2017-10-30 08:52 | Orthopedics Progress Note ---
Date of Encounter: 10/30/17 Time of Encounter: 08:30 - Assessment and Plan (1) Status post cervical spinal fusion Current Visit: Yes Status: Acute (2) Cervical spinal stenosis Current Visit: Yes Status: Chronic (3) Cervical radiculopathy Current Visit: Yes Status: Chronic (4) Cervical kyphosis Current Visit: Yes Status: Chronic Qualifiers: Kyphosis type: unspecified Qualified Code(s): M40.202 - Unspecified kyphosis, cervical region (5) Cervical myelopathy Current Visit: Yes Status: Chronic Subjective Principal diagnosis: Cervical stenosis, cervical radiculopathy Interval history: POD#1 Anterior cervical decompression and fusion C4-C7 on 10/29/[address] Pillai for Cervical stenosis, cervical radiculopathy The patient is without complaints. Admits to improvement in swallowing, cough reduction, and neck pain. Afebrile vital signs are stable. Incision is clean dry and intact. Neurovascularly intact with regard to bilateral upper extremities. Fires all upper and lower extremity motor groups. Assessment :stable. Plan mobilize , continue analgesics as needed, discharge planning pending PT evaluation, radiographs pending Will plan to discharge today following therapy recommendations. Objective Vital signs: Vital Signs Temp Pulse Resp BP Pulse Ox 10/30/17 07:32 97.8 F 77 15 147/85 95 10/30/17 02:58 98.1 F 81 14 149/81 94 10/29/17 22:26 97.6 F 79 14 107/70 97 10/29/17 19:47 97.7 F 84 14 139/78 95 10/29/17 18:56 97.9 F 97 17 135/72 96 10/29/17 17:50 97.9 F 88 16 122/77 95 10/29/17 16:46 98.0 F 90 15 121/76 93 10/29/17 16:22 98.1 F 95 15 129/80 94 10/29/17 15:50 98.1 F 94 15 127/79 94 10/29/17 15:23 97.6 F 95 16 142/79 94 10/29/17 15:13 97 16 142/76 95 10/29/17 15:03 95 16 147/82 96 10/29/17 14:53 97.5 F L 99 16 143/76 95 10/29/17 09:29 97.9 F 78 18 137/73 96 10/29/17 09:28 97.9 F 78 18 137/73 96 Intake and Output 10/29/17 10/30/17 10/30/17 23:59 07:59 15:59 Intake Total 250 / 250 100 / 100 Output Total 550 / 550 800 / 800 Balance -300 / -300 -700 / -700 Intake: IV Fluids 100 / 100 Ancef 2,000 MG In 0.9 % Sodium 100 / 100 Chloride 100 ML @ 200 mls/hr IVPB Q8H [id number] Rx#:[id number] Oral 150 / 150 100 / 100 Output: Emesis 200 / 200 Catheter 350 / 350 800 / 800 - Labs CBC & BMP: 10/30/17 00:53 10/30/17 00:53 Labs: Abnormal lab results WBC 13.0 K/mcL (4.3-11.1) H 10/30/17 00:53 RBC 3.80 M/mcL (3.82-4.97) L 10/30/17 00:53 Hgb 11.4 g/dL (11.5-15.4) L 10/30/17 00:53 MPV 9.3 fL (9.4-12.4) L 10/30/17 00:53 Neutrophils # 11.2 K/mcL (1.6-8.9) H 10/30/17 00:53 Glucose 140 mg/dL (70-105) H 10/30/17 00:53 - VTE Documentation of Mechanical Device: Intermittent pneumatic compression device Consult Discharge Plan - Plan Referrals: ColopyYves DO [Primary Care Provider] - Marjan Tamayo PAC [Physician Public Employment Mediator] - 11/12/17 11:30 am
[2017-10-30] MEDS: amLODIPine 5 MG TABLET PO SCH (09:23)
[2017-10-30] MEDS: Multivit/Ca/Min/Fe/FA 1 TAB TABLET PO SCH (09:23)
[2017-10-30] MEDS: EPA PO SCH (09:24)
[2017-10-30] MEDS: FISH OIL PO SCH (09:24)
[2017-10-30] MEDS: DHA PO SCH (09:24)
[2017-10-30] MEDS: OMEGA PO SCH (09:24)
[2017-10-30] MEDS ORDERED: traMADol 50 MG TABLET PO PRN (12:46)
--- NOTE | 2017-10-30 12:48 | Discharge Summary ---
Orders not resulted at time of discharge: Pending orders 10/30/17 08:46 XR cervical spine 3V [XR] Routine Date of Encounter: 10/31/17 Time of Encounter: 08:55 - Discharge Diagnosis (1) Status post cervical spinal fusion Priority: Primary Status: Acute (2) Cervical spinal stenosis Priority: Primary Status: Chronic (3) Cervical radiculopathy Priority: Primary Status: Chronic (4) Cervical kyphosis Priority: Primary Status: Chronic Qualifiers: Kyphosis type: unspecified Qualified Code(s): M40.202 - Unspecified kyphosis, cervical region (5) Cervical myelopathy Priority: Primary Status: Chronic - Hospital Course Hospital course: Ms. Damon is a 67 year old female Anterior cervical decompression and fusion C4-C7 on 10/29/[address] Pillai for Cervical stenosis, cervical radiculopathy The patient had an uneventful postoperative course. Progressed from intravenous analgesic needs to oral analgesic needs only. Remained neurovascularly intact and mobilized satisfactorily. All intraoperative and/or postoperative radiographic studies were satisfactory. Patient is discharged with plan for rehabilitation and follow-up in 2 weeks post discharge on analgesic medication and patient's home medications - Time Spent with Patient Total time spent providing and/or coordinating discharge services: - Discharge Medications Prescriptions: Tramadol HCl [Ultram] 50 mg PO Q6H PRN 7 Days #28 tab PRN Reason: Moderate Pain Home Medications: Amlodipine Besylate 10 mg PO DAILY 09/09/17 [History] Atorvastatin Calcium [Lipitor] 20 mg PO DAILY 09/09/17 [History] Calcium Carbonate [Calcium] 600 mg PO DAILY 09/09/17 [History] Losartan Potassium [Cozaar] 100 mg PO DAILY 09/09/17 [History] Multivitamin-Min/Iron/FA/Vit K [Multi-Day Plus Minerals Tablet] 1 each PO DAILY 09/09/17 [History] Russell-3/Dha/Epa/Fish Oil [Fish Oil 1,000 mg Softgel] 1,000 mg PO DAILY 09/09/17 [History] Tramadol HCl [Ultram] 50 mg PO Q6H PRN 7 Days #28 tab 10/30/17 [Rx] Allergies/Adverse Reactions: 3 Allergy/AdvReac Type Severity Reaction Status Date / Time No Known Allergies Allergy Verified 10/29/17 10:17 Date of admission: 10/29/17 15:57 Primary care physician: Yves Alvarez Colopy Consults: 10/29/17 15:39 Consult to Physical Therapy [CONS] Routine Comment: Evaluate, develop and implement POC Reason for Consult: Postoperative rehabilitation Does patient have active BEDREST order?: No Is patient medically & hemodynamically stable?: Yes Patient assessed for mobility or mobilized this visit?: No Consult to Spine Navigator [CONS] [CONS] Routine - VTE Documentation of Mechanical Device: Intermittent pneumatic compression device Labs on day of discharge: Labs from last 24 hours 10/30/17 10/30/17 00:53 00:53 WBC 13.0 H RBC 3.80 L Hgb 11.4 L Hct 35.5 MCV 93.4 MCH 30.0 MCHC 32.1 RDW 13.5 Plt Count 249 MPV 9.3 L Immature Gran % 0.6 Seg Neutrophils % 86.3 Lymphocytes % 5.7 Monocytes % 7.2 Eosinophils % 0.0 Basophils % 0.2 Neutrophils # 11.2 H Lymphocytes # 0.7 Monocytes # 0.9 Eosinophils # 0.0 Basophils # 0.0 Sodium 140 Potassium 4.6 Chloride 107 Carbon Dioxide 28 BUN 12 Creatinine 0.70 Est GFR ( Amer) > 60 Est GFR (Non-Af Amer) > 60 BUN/Creatinine Ratio 17 Glucose 140 H Calculated Osmolality 292 Calcium 8.7 - Impressions ITS Impressions Cervical Spine X-Ray 10/29/17 00:00 IMPRESSION: Anterior radiopaque marker overlies C4-5. D/ / 10/29/2017 13:24:49 Kermit Pop MD / ian Interpreting Provider: Kermit Pop MD Cervical Spine X-Ray 10/29/17 00:00 IMPRESSION: Postsurgical change may anterior fusion involving C4 through C7. No hardware complication is seen involving the visualized upper hardware. D/ / Joni Jones MD / Joni Jones MD Interpreting Provider: Joni Jones MD - Patient Status Disposition: Home, Self-Care Condition: Good Functional capacity at discharge: uses cane/walker Overall status at discharge: patient is progressing back to baseline - Discharge Instructions Follow Up With: Marjan Tamayo PAC [Physician Poultry Processor] - 11/12/17 11:30 am Jason Pillai Jr, MD [Partnered Physician] - 01/30/18 11:45 am Additional Instructions: Discharge Instructions: Cervical Please call [facility] ([phone]), your Primary Care Physician, or report to the ER if you have any of the following symptoms: Fever greater that 101.5, increased pain/redness/drainage/odor for your incision site or any other concerning symptoms. ACTIVITY * May Shower * No Tub Baths * No Smoking * No Swimming * No Driving * Wear Collar when up walking MEDICATIONS: Upon discharge resume your home medications. Take all the medications as prescribed. Take a stool softener if taking narcotic pain medications. Stool softeners are only effective if you drink enough fluids. Drink 6-8 glass of water or fluids a day, unless this is not allowed for another health problem. Despite using stool softeners, if you haven't had a bowel movement in 3 days, please switch to a gentle laxative. Gentle laxatives are sold over the counter. You should have a bowel movement within 24 hours, if not call the office. You will be discharged from the hospital with a prescription for pain medication. You are encouraged to decrease the use of narcotic pain medication as tolerated. Should you require a refill, please call the office. It is best to call 48-72 hours in advance of needing a prescription refill so you don't run out of medication. WOUND CARE: Leave steri-strips in place until they fall off on their own. Pat dry when you get out of the shower. FOLLOW-UP: Please follow up with your surgeon in the orthopedic clinic in 2 weeks from the day of surgery. References: [employer] ([email or web address]) - Diet and Activity Activity: as per physical therapy Diet: advance to your usual diet
[2017-10-30] MEDS ORDERED: Famotidine 20 MG TABLET PO ONE (18:11)
[2017-10-31] MEDS: amLODIPine 5 MG TABLET PO SCH (08:41)
[2017-10-31] MEDS: EPA PO SCH (08:42)
[2017-10-31] MEDS: OMEGA PO SCH (08:42)
[2017-10-31] MEDS: DHA PO SCH (08:42)
[2017-10-31] MEDS: Multivit/Ca/Min/Fe/FA 1 TAB TABLET PO SCH (08:42)
[2017-10-31] MEDS: FISH OIL PO SCH (08:42)
[2017-10-31 11:21] VITALS: BP 148/77
--- NOTE | 2017-10-31 12:59 | Orthopedics Progress Note ---
Date of Encounter: 10/31/17 Time of Encounter: 08:55 - Assessment and Plan (1) Status post cervical spinal fusion Current Visit: Yes Status: Acute (2) Cervical spinal stenosis Current Visit: Yes Status: Chronic (3) Cervical radiculopathy Current Visit: Yes Status: Chronic (4) Cervical kyphosis Current Visit: Yes Status: Chronic Qualifiers: Kyphosis type: unspecified Qualified Code(s): M40.202 - Unspecified kyphosis, cervical region (5) Cervical myelopathy Current Visit: Yes Status: Chronic Subjective Principal diagnosis: Cervical stenosis, cervical radiculopathy Interval history: POD#2 Anterior cervical decompression and fusion C4-C7 on 10/29/[address] Pillai for Cervical stenosis, cervical radiculopathy The patient is without complaints. Admits to improvement in swallowing, cough reduction, and neck pain. Afebrile vital signs are stable. Incision is clean dry and intact. Neurovascularly intact with regard to bilateral upper extremities. Fires all upper and lower extremity motor groups. Patient continues to c/o pain and difficulty with swallowing. Will consult nutrition services and get patient set up with speech therapy for evaluation and recommendations. Assessment :stable. Plan mobilize , continue analgesics as needed, discharge planning - home today, patient kept last night secondary to difficulty with swallowing. radiographs pending Objective Vital signs: Vital Signs Temp Pulse Resp BP Pulse Ox 10/31/17 11:20 97.7 F 74 15 148/77 96 10/31/17 07:31 98.2 F 76 14 128/77 93 10/31/17 04:21 98.3 F 75 18 143/82 93 10/31/17 01:06 98.5 F 75 16 135/75 93 10/30/17 20:11 98.1 F 85 16 146/76 94 Intake and Output 10/30/17 10/31/17 10/31/17 23:59 07:59 15:59 Intake Total 290 / 290 0 / 0 360 / 360 Balance 290 / 290 0 / 0 360 / 360 Intake: Oral 290 / 290 0 / 0 360 / 360 Other: Meal Dinner Breakfast Percent of Meal Consumed 90% 10% # Voids 1 0 1 Weight 88.9 kg Patient Weight 10/31/17 23:59 Weight 88.9 kg - Labs CBC & BMP: 10/30/17 00:53 10/30/17 00:53 Labs: Abnormal lab results WBC 13.0 K/mcL (4.3-11.1) H 10/30/17 00:53 RBC 3.80 M/mcL (3.82-4.97) L 10/30/17 00:53 Hgb 11.4 g/dL (11.5-15.4) L 10/30/17 00:53 MPV 9.3 fL (9.4-12.4) L 10/30/17 00:53 Neutrophils # 11.2 K/mcL (1.6-8.9) H 10/30/17 00:53 Glucose 140 mg/dL (70-105) H 10/30/17 00:53 - VTE Documentation of Mechanical Device: Intermittent pneumatic compression device Consult Discharge Plan - Plan Additional Instructions: Discharge Instructions: Cervical Please call [facility] ([phone]), your Primary Care Physician, or report to the ER if you have any of the following symptoms: Fever greater that 101.5, increased pain/redness/drainage/odor for your incision site or any other concerning symptoms. ACTIVITY * May Shower * No Tub Baths * No Smoking * No Swimming * No Driving * Wear Collar when up walking MEDICATIONS: Upon discharge resume your home medications. Take all the medications as prescribed. Take a stool softener if taking narcotic pain medications. Stool softeners are only effective if you drink enough fluids. Drink 6-8 glass of water or fluids a day, unless this is not allowed for another health problem. Despite using stool softeners, if you haven't had a bowel movement in 3 days, please switch to a gentle laxative. Gentle laxatives are sold over the counter. You should have a bowel movement within 24 hours, if not call the office. You will be discharged from the hospital with a prescription for pain medication. You are encouraged to decrease the use of narcotic pain medication as tolerated. Should you require a refill, please call the office. It is best to call 48-72 hours in advance of needing a prescription refill so you don't run out of medication. WOUND CARE: Leave steri-strips in place until they fall off on their own. Pat dry when you get out of the shower. FOLLOW-UP: Please follow up with your surgeon in the orthopedic clinic in 2 weeks from the day of surgery. References: [employer] ([email or web address]) Referrals: Marjan Tamayo PAC [Physician Control Systems Developer] - 11/12/17 11:30 am Jason Pillai Jr, MD [Partnered Physician] - 01/30/18 11:45 am Prescriptions: Tramadol HCl [Ultram] 50 mg PO Q6H PRN 7 Days #28 tab PRN Reason: Moderate Pain
--- NOTE | 2017-10-31 13:03 | Event Note ---
Date of Encounter: 10/31/17 Time of Encounter: 13:03 Arranged appt with speech therapy for patient on 11/05/17 at 8am at [facility] on 3rd floor.
== END 2017-10-31 16:26 | disposition home or self-care (01) | DRG 472 ==
LOC: SAMDAY 08:56 → 3NENU 15:57
PROVIDERS: ADMIT Orthopaedic Surgery Orthopaedic Surgery of the Spine; ATTEND Orthopaedic Surgery Orthopaedic Surgery of the Spine